=== PATIENT | male | born 1995 | race Caucasian/White ===

== ENCOUNTER 2017-01-26 09:00 | Emergency (ER) | payer OTHER | END 2017-01-26 11:56 | disposition home or self-care (01) | LOC: ER 09:00 | DX: R07.81 Pleurodynia (principal); M54.6 Pain in thoracic spine; G43.909 Migraine, unspecified, not intractable, without status migrainosus; J45.998 Other asthma; Z79.899 Other long term (current) drug therapy; Z86.19 Personal history of other infectious and parasitic diseases | CPT/HCPCS: 36415; 96374; J1885 ==

== ENCOUNTER 2017-01-28 09:39 | Emergency (ER) | payer OTHER | END 2017-01-28 10:56 | disposition home or self-care (01) | LOC: ER 09:39 | DX: S46.911A Strain of unspecified muscle, fascia and tendon at shoulder and upper arm level, right arm, initial encounter (principal); G43.909 Migraine, unspecified, not intractable, without status migrainosus; X58.XXXA Exposure to other specified factors, initial encounter | CPT/HCPCS: 96372; J1885 ==

== ENCOUNTER 2017-03-03 23:10 | Emergency (ER) | payer OTHER | END 2017-03-04 00:48 | disposition home or self-care (01) | LOC: ER 23:10 | DX: R10.13 Epigastric pain (principal); R11.0 Nausea; G43.909 Migraine, unspecified, not intractable, without status migrainosus | CPT/HCPCS: 36415; 96374; 96375 ==